=== PATIENT | male | born 1975 | race Caucasian/White ===

== ENCOUNTER 2021-02-06 17:06 | Emergency (ER) | payer OTHER ==
[~2021-02-06] VITALS: Wt 106.6 kg
== END 2021-02-06 19:00 | disposition home or self-care (01) ==
LOC: ED 17:06 → EDSEX 17:10 → ED 17:10
DX: S01.81XA Laceration without foreign body of other part of head, initial encounter (principal); Z88.0 Allergy status to penicillin; Z88.8 Allergy status to other drugs, medicaments and biological substances; Z90.89 Acquired absence of other organs; W20.8XXA Other cause of strike by thrown, projected or falling object, initial encounter; Y93.89 Activity, other specified; Y92.89 Other specified places as the place of occurrence of the external cause; Y99.8 Other external cause status